=== PATIENT | male | born 1940 | race Caucasian/White ===

== ENCOUNTER → 2017-07-13 | Outpatient (CLI) | payer MEDICARE, BC ==
[2017-07-13 13:26] LABS: EKG EKG PERFORMED
[2017-07-13 13:49] LABS: CH 28.8; HCT 36.9 % (39.0-53.0); HDW 2.55; HGB 11.6 gm/dL (13.0-17.5); Hypochromasia Slight; MCH 29.2 pg (25.0-35.0); MCHC 31.3 g/dL (31.0-37.0); MCV 93.5 fL (80.0-100.0); Mean Platelet Volume 7.5; RBC 3.95 m/uL (4.30-5.90); RDW 13.5 % (11.5-15.5); WBC 10.3 k/uL (3.8-10.6)
[2017-07-13 13:57] LABS: Appearance,Urine Clear (Clear); Bilirubin,Urine Negative (Negative); Glucose,Urine (UA) Negative (Negative); Ketones,Urine Negative (Negative); Leukocyte Esterase,Urine Negative (Negative); Nitrite,Urine Negative (Negative); PH, Urine 5.5 (5.0-8.0); Protein,Urine Negative (Negative); Specific Gravity,Urine 1.009 (1.001-1.035); UA Billing (MACRO vs. MICRO) CHEM; Urobilinogen,Urine <2.0 mg/dL (<2.0)
[2017-07-13 13:58] LABS: Partial Thromboplastin Time 26.8 sec (22.0-30.0); Prothrombin Time 10.1 sec (9.0-12.0)
[2017-07-13 14:21] LABS: ALT 33 U/L (21-72); AST 25 U/L (17-59); Alkaline Phosphatase 104 U/L (38-126); Anion Gap 13 mmol/L; Blood Urea Nitrogen 39 mg/dL (9-20); Calcium 10.1 mg/dL (8.4-10.2); Carbon Dioxide 21 mmol/L (22-30); Chloride 106 mmol/L (98-107); Glucose 98 mg/dL (74-99); Non-African American GFR(MDRD) 25 (>60 ml/min/1.73 sqM); Potassium 4.7 mmol/L (3.5-5.1); Sodium 140 mmol/L (137-145); Total Bilirubin 0.7 mg/dL (0.2-1.3); Total Protein 7.3 g/dL (6.3-8.2)
== END | disposition home or self-care (01) ==
LOC: LABWHC1 13:15
PROVIDERS: ATTEND Orthopaedic Surgery
DX: Z01.810 Encounter for preprocedural cardiovascular examination (principal); Z01.812 Encounter for preprocedural laboratory examination; Z79.01 Long term (current) use of anticoagulants
CPT/HCPCS: 80053; 81003; 85027; 85610; 85730; 87070; 93005

== ENCOUNTER 2017-07-26 10:27 | Inpatient (IN) | payer MEDICARE, BC ==
[~2017-07-26 10:27] MED LIST: HYDROmorphone 0.5 MG/0.5 ML SYRINGE IVP PRN; LACTATED RINGERS 1,000 ML IV SCH; ONDANSETRON 4 MG/2 ML VIAL IVP PRN; ROPIVACAINE 246.25 MG, EPINEPHrine 0.5 MG, KETOROLAC 30 MG, cloNIDine HCL/PF 80 MCG, WA... MISCELLANE ONE; ceFAZolin 2 GM in SODIUM CHLORIDE 0.9% 100 ML IVPB ONE
[2017-07-26] MEDS ORDERED: LIDOCAINE 1% 20 ML VIAL (10MG/ML) FOR IV START INTRADERMA ONE (10:52)
[2017-07-26] MEDS ORDERED: fentaNYL (PF) 50 MCG/ML 2 ML AMP IV ONE (11:08)
[2017-07-26] MEDS ORDERED: MIDAZOLAM 2 MG/2 ML VIAL IV ONE (11:08)
--- NOTE | 2017-07-26 11:33 | P.ONQ ---
Anesthesiology Proc Note - PNB - Peripheral Nerve Block Performed Right Adductor Canal Infusion Time Out Performed: Yes Indication: Acute Post-Operative Pain, Analgesia Specifically requested for management of pain by DrAmy: Mandeep Bullard Sedation Type: Sedate with meaningful contact maintained Preparation: Sterile Prep Position: Supine Catheter Depth at Skin (cm): 6 Catheter: Indwelling Needle Types: Other (see comment) (pajunk) Needle Size: 100mm (4") Needle Gauge: 18 Technique: Ultrasound Injectate: 0.5% Ropivacaine (see comment for volume) (20cc) Blood Aspirated: No Pain Paresthesia on Injection Noted: No Resistance on Injection: Normal Events: Uneventful and Well Tolerated
[2017-07-26] MEDS ORDERED: TRANEXAMIC ACID 1,000 MG in SODIUM CHLORIDE 0.9% 100 ML IVPB PRN ×2 (11:47→11:49)
[2017-07-26] MEDS ORDERED: TRANEXAMIC ACID 1,000 MG in SODIUM CHLORIDE 0.9% 100 ML IVPB STA ×2 (11:47→11:49)
[2017-07-26] MEDS ORDERED: ACETAMINOPHEN TAB 500 MG TAB PO STA ×2 (11:47→11:49)
[2017-07-26] MEDS ORDERED: ROPIVACAINE 1,100 MG, SODIUM CHLORIDE 0.9% 330 ML MISCELLANE PRN ×2 (12:00)
[2017-07-26] MEDS ORDERED: MELOXICAM 7.5 MG TAB PO ONE (12:02)
[2017-07-26] MEDS ORDERED: HYDROcodone/APAP 5-325MG 1 EACH TAB PO PRN (12:22)
[2017-07-26] MEDS ORDERED: hydrOXYzine PAMOATE 25 MG CAP PO PRN (12:22)
[2017-07-26] MEDS ORDERED: NA PHOS,M-B/NA PHOS,DI-BA 133 ML ENEMA RECTAL PRN (12:22)
[2017-07-26] MEDS ORDERED: HYDROmorphone 0.5 MG/0.5 ML SYRINGE IVP PRN ×3 (12:22)
[2017-07-26] MEDS ORDERED: MAGNESIUM HYDROXIDE 2,400 MG/10 ML CUP PO PRN (12:22)
[2017-07-26] MEDS ORDERED: BISACODYL 10 MG SUPP RECTAL PRN (12:22)
[2017-07-26] MEDS ORDERED: DIAZEPAM 5 MG TAB PO PRN ×2 (12:22)
[2017-07-26] MEDS ORDERED: NALOXONE 0.4 MG/ML 1 ML VIAL IV PRN (12:22)
[2017-07-26] MEDS ORDERED: SODIUM CHLORIDE 0.9% 100 ML BAG ONE (12:36)
[2017-07-26] MEDS ORDERED: GLYCOPYRROLATE 0.2 MG/ML 2 ML VIAL ONE (12:36)
[2017-07-26] MEDS ORDERED: ePHEDrine SULFATE/0.9% NACL/PF 50 MG/5 ML SYRINGE IV ONE (12:36)
[2017-07-26] MEDS ORDERED: fentaNYL (PF) 50 MCG/ML 2 ML AMP ONE (12:36)
[2017-07-26] MEDS ORDERED: TRANEXAMIC ACID 1,000 MG/10 ML VIAL ONE (12:36)
[2017-07-26] MEDS ORDERED: PHENYLEPHRINE-0.9% NACL SYG 1 MG/10 ML SYRINGE ONE (12:36)
[2017-07-26] MEDS ORDERED: ceFAZolin 3,000 MG in SODIUM CHLORIDE 0.9% IRRIGATIO 3,000 ML IRRIGATION ONE (12:46)
--- NOTE | 2017-07-26 13:50 | P.OP ---
Date of Procedure: 07/26/17 Preoperative Diagnosis: Severe osteoarthritis right knee Postoperative Diagnosis: Severe osteoarthritis right knee Procedure(s) Performed: Right total knee arthroplasty Implants: [employer] Oxinium femoral component size 5, right Samuels [employer]hew Sera II right nonporous tibial baseplate size 5 [employer]hew size 9 mm Legion XLPE dished articular insert, size 5-6 [employer] Sera II resurfacing patellar component, 32 mm All components were cemented using Torrie bone cement.. The articulation is Oxinium on polyethylene. Anesthesia: local Surgeon: Mandeep Bullard Internet Marketing Coordinator #1: Mandi Dillard Estimated Blood Loss (ml): 50 Pathology: other (Bone and cartilage) Condition: stable Disposition: PACU Indications for Procedure: After failure of conservative treatment we discussed the surgical and nonsurgical treatment options at length. Patient wishes to proceed with a total knee arthroplasty. Complications specific to this procedure were discussed at length, including but not limited to infection, bleeding, stiffness , and nerve injury. Patient is aware of all these complications and informed consent was obtained Operative Findings: The operative findings are consistent with severe osteoarthritis of the right knee Description of Procedure: Patient was seen in the preoperative area consent was reviewed and operative site was marked with a skin marker. An adductor canal pain catheter was placed by anesthesia in the preoperative area. Patient was then brought to the operating room and given preoperative antibiotics intravenously. A spinal anesthetic was administered by the anesthesia department. A tourniquet was placed on the upper thigh and the lower extremity was prepped and draped in usual sterile fashion. A gram of transexamic acid was given. A universal timeout was then performed which confirmed the patient's name, surgical site, ALLERGIES, and consent. The lower extremity was then exsanguinated and tourniquet was inflated to 300 mmHg. A standard and anterior midline approach to the knee was performed. The skin and subcutaneous tissue was dissected down to the patellar tendon. A medial parapatellar arthrotomy was then performed. The knee was then extended, the patellar was everted, and the knee was again flexed. Anterior horns of both menisci were excised, and a release was performed to the posterior medial aspect of the knee. On gross visual inspection, there was complete loss of articular cartilage in the medial and patellofemoral joint spaces. There was also significant cartilage damage in the lateral compartment. There were multiple periarticular osteophytes which were then removed with a Ronguer. The femoral canal was then opened with the appropriate drill, and the intramedullary femoral cutting guide was then placed and set for 4 of valgus. The distal femoral cutting block was then pinned in place, and the distal femur was then cut. The cutting block was then removed and the cut was checked for flatness. Next, the sizing guide was then placed and set for 3 external rotation based off of the epicondylar axis and Whitesides line. After the femur was sized, the appropriate 4-in-1 cutting block was then pinned in place. The anterior condyles were cut without notching. The posterior and chamfer cuts were performed while protecting the collateral ligaments. The cutting block was then removed, and the femoral canal was plugged with autologous bone. Attention was then directed to the tibia. The remaining ACL was removed with a Ronguer, and the tibia was then gently subluxed forward with a large bent knee retractor. Any remaining menisci was excised. The posterior lateral corner was cauterized in order to cauterize the lateral geniculate artery. The extra medullary tibial cutting guide was then placed, set for the appropriate rotation , slope, and depth of resection. The proximal tibia cutting guide was then pinned in place. Proximal tibia was then cut and sized. Next trials were then placed with the appropriate-sized insert. The knee was able to fully extend and flex to 130 and was stable throughout all range of motion. The knee was then extended, patella everted. Patella was then measured, and then using an osteotomy guide, the patella was cut at the appropriate level. The patella was then measured and drilled and the patella trial was then placed. The knee was then taken through range of motion with the patella trial and the patella tracked normally. The knee was then extended patella trial was then removed and the patella was everted. Knee was then flexed and lug holes were drilled through the femoral trial and the femoral trial was then removed. The tibial was then exposed, and the tibial broach guide was then pinned in place after it was set for the appropriate rotation to allow for the most coverage without overhang. The tibia was then reamed and broached. The cut surfaces of bone were then irrigated with pulsatile lavage. The posterior structures were injected with the ropivacaine solution. The knee was also irrigated with Irrisept solution. The components were then opened, the cement was mixed, and the components were then cemented in place. The cement was allowed to harden with the knee in full extension. While the cement was hardening, the remaining soft tissues were then injected with a ropivacaine solution, which consisted of 246.25 mg of ropivacaine, 0.5 mg of epinephrine, 30 mg of Toradol, 80 g of clonidine, and 48.45 mL of sterile water, for a total of 100 mL of fluid injected. After the cemented hardened. The tourniquet was released, and hemostasis was obtained. A second gram of transexamic acid was given. The knee was again irrigated. The knee was again taken through range of motion and found to be stable throughout all range of motion of 0-130 , and the patella tracked normally. The fascia was then closed with #2 strata fix suture. The subcutaneous tissue was closed with 3-0 Vicryl and 3-0 strata fix. Dermabond tape was used for the skin and placed with the knee in flexion. The patient was placed in a sterile silver dressing. Patient was then transferred to recovery room in stable condition. The nutrition services assistant RICHARDSON Villegas was required due the complexity surgery and the need for a skilled sales operations assistant. She assisted in positioning, draping, retraction, and closure of the wound.
--- NOTE | 2017-07-26 15:01 | XR ---
EXAMINATION TYPE: XR knee limited RT DATE OF EXAM: 07/26/2017 CLINICAL HISTORY: Right knee pain and arthritis status post total knee replacement. TECHNIQUE: Portable AP and crosstable lateral views of the right knee are obtained immediately posto peratively. COMPARISON: None FINDINGS: Metallic hardware from total right knee arthroplasty is seen and appears satisfactory in a lignment and position. There is evidence of recent surgery with diffuse subcutaneous gas and soft ti ssue swelling noted. IMPRESSION: METALLIC HARDWARE FROM TOTAL RIGHT KNEE ARTHROPLASTY IS SATISFACTORY IN ALIGNMENT.
[2017-07-26] MEDS ORDERED: LACTATED RINGERS 1,000 ML IV ONE (15:48)
[2017-07-26 17:01] VITALS: BMI 34.3
[2017-07-26] MEDS: ceFAZolin 2 GM in SODIUM CHLORIDE 0.9% 100 ML IVPB SCH (18:03)
[2017-07-26] MEDS: SODIUM CHLORIDE 0.9% 1,000 ML IV SCH (18:04)
[2017-07-26] MEDS: HYDROcodone/APAP 5-325MG 1 EACH TAB PO PRN (18:11)
[2017-07-26] MEDS: ATORVASTATIN 20 MG TAB PO SCH (21:10)
[2017-07-26] MEDS: METOPROLOL TARTRATE 50 MG TAB PO SCH (21:11)
[2017-07-26] MEDS: amLODIPine 5 MG TAB PO SCH (21:11)
[2017-07-26] MEDS: hydrALAZINE HCL 25 MG TAB PO SCH (21:12)
[2017-07-26] MEDS: FAMOTIDINE 20 MG TAB PO SCH (21:12)
[2017-07-26] MEDS: SENNOSIDES-DOCUSATE SODIUM 1 EACH TAB PO SCH (22:35)
[2017-07-26] MEDS: ASPIRIN 325 MG TAB PO SCH (22:36)
--- NOTE | 2017-07-26 23:58 | CONS ---
CONSULTATION REASON FOR CONSULTATION: Medical management requested by Dr. Bullard. CONSULTATION: This is a pleasant 77-year-old patient who has undergone right total knee arthroplasty. Post procedure, very slight nausea. No chest pressure. Denies any cardiac history. Patient's and daughter are at the bedside. His chronic stable medical conditions include GERD, hypertension, hyperlipidemia, osteoarthritis, sleep apnea if he does not use CPAP machine, chronic kidney disease, stage III, iron deficiency. Denies any cardiac history. REVIEW OF SYSTEMS: CONSTITUTIONAL: None. HEENT: None. RESPIRATORY: None. CARDIOVASCULAR: None. GASTROINTESTINAL: Heartburn. GENITOURINARY: None. MUSCULOSKELETAL: Pain in different joints. DERMATOLOGICAL: None. HEMATOLOGICAL: None. LYMPHATICS: None. PSYCHIATRY: None. NEUROLOGICAL: None. PAST MEDICAL HISTORY: 1. GERD. 2. Hypertension. 3. Hyperlipidemia. 4. Osteoarthritis. 5. Obstructive sleep apnea. 6. Chronic kidney disease, stage III. 7. Iron deficiency. PAST SURGICAL HISTORY: 1. Left total hip arthroplasty. 2. EGD, dilatation. 3. Hernia repairs bilaterally. 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 . No smoking. No alcohol. FAMILY HISTORY: Cancer, type unknown. HOME MEDICATIONS: 1. Hydralazine 25 mg p.o. b.i.d. 2. Norvasc 5 mg p.o. b.i.d. 3. Zocor 40 mg at bedtime. 4. Zantac 150 mg p.o. b.i.d. 5. Lopressor 50 mg p.o. b.i.d. 6. Vitamin D3 400 units p.o. daily. 7. Aspirin 81 mg p.o. daily. ALLERGIES: NONE. PHYSICAL EXAMINATION: Temperature 96.9, pulse 79, respirations 17, blood pressure 127/72, pulse ox 96% on room air. GENERAL APPEARANCE: Well built; BMI 34.3. Lying in bed, comfortable. EYE: Pupils equal. Conjunctivae normal. HEENT: Oral cavity normal. NECK: JVD not raised. Mass not palpable. RESPIRATORY: Effort normal. Lungs are clear. CARDIOVASCULAR: First and second sounds normal. No edema. ABDOMEN: Soft, nontender. Liver and spleen not palpable. LYMPHATICS: No lymph node palpable in neck or axillae. PSYCHIATRY: Alert and oriented x3. Mood and affect normal. NEUROLOGICAL: Cranial nerves grossly intact. Power and sensation grossly intact. EXTREMITIES: Right knee in a dressing. INVESTIGATIONS: No blood work today. Blood work from 07/13/17 shows a white count of 10.3, hemoglobin 11.6, potassium 4.7, BUN 39, creatinine 2.50. ASSESSMENT: 1. Right total knee arthroplasty. 2. Gastroesophageal reflux disease. 3. Essential hypertension. 4. Hyperlipidemia. 5. Primary osteoarthritis of the joints. 6. Obstructive sleep apnea; does not use a CPAP machine. 7. Chronic kidney disease, stage III, from hypertensive nephrosclerosis. 8. Normocytic anemia, probably related to chronic kidney disease. PLAN: Home medications are resumed. Patient is on aspirin for DVT prophylaxis per Dr. Bullard. Care was discussed with the patient and family. Questions were answered. Thank you, Dr. Bullard. MMBRENNA / ELLIS: [id number] /
[2017-07-27] MEDS: ceFAZolin 2 GM in SODIUM CHLORIDE 0.9% 100 ML IVPB SCH (00:42)
[2017-07-27] MEDS: SODIUM CHLORIDE 0.9% 1,000 ML IV SCH (06:14)
[2017-07-27] MEDS: HYDROcodone/APAP 5-325MG 1 EACH TAB PO PRN ×2 (06:14→13:35)
[2017-07-27 08:05] LABS: Basophils % (A) 0 %; CH 29.6; CHCM 31.2; Eosinophils # (A) 0.1 k/uL (0-0.7); Eosinophils % (A) 2 %; HCT 31.9 % (39.0-53.0); HDW 2.43; Hypochromasia Slight; Luc # (Auto) 0.16; Luc % (Auto) 2; Lymphocytes # (A) 0.7 k/uL (1.0-4.8); Lymphocytes % (A) 7 %; MCH 28.8 pg (25.0-35.0); MCHC 30.2 g/dL (31.0-37.0); MCV 95.3 fL (80.0-100.0); Mean Platelet Volume 7.7; Monocytes # (A) 0.6 k/uL (0-1.0); Monocytes % (A) 6 %; Neutrophils # (A) 8.1 k/uL (1.3-7.7); Neutrophils % (A) 83 %; RBC 3.35 m/uL (4.30-5.90); RDW 14.3 % (11.5-15.5); WBC 9.7 k/uL (3.8-10.6); WBC (Perox) 10.08
--- NOTE | 2017-07-27 08:13 | P.PN ---
Subjective This is a 77-year-old male who is status post right total knee arthroplasty. This is postoperative day #1. Patient is seen and evaluated at bedside with Dr. Mandeep Bullard. Patient states his pain is well controlled. Patient states he has had trouble urinating and has needed to be straight cathed two times so far. Otherwise patient denies any numbness, weakness or tingling. Objective - Vital Signs Vital signs: Vital Signs Temp 96.9 F L 07/27/17 02:22 Pulse 66 07/27/17 02:22 Resp 17 07/27/17 02:22 BP 135/77 07/27/17 02:22 Pulse Ox 96 07/27/17 02:22 Intake & Output 07/26/17 07/27/17 07/27/17 18:59 06:59 18:59 Intake Total 1101 815 Output Total 50 1250 Balance 1051 -435 Weight 90.718 kg Intake: IV 1101 Intake, IV Titration 815 Amount Sodium Chloride 0.9% 1, 715 000 ml @ 65 mls/hr IV . [id number] NOA Rx#:[id number] ceFAZolin 2 gm In Sodium 100 Chloride 0.9% 100 ml @ 100 mls/hr IVPB Q8HR NOA Rx#:[id number] Output: Urine 1250 Straight 1250 Estimated Blood Loss 50 Other: # Voids 3 - Exam Vital signs are stable. Patient is in no acute distress and is alert and oriented 3. Calf is soft and nontender. Dressing is clean, dry, and intact. Neurovascular status intact. Patient has full foot and ankle motion. Assessment and Plan (1) Primary osteoarthritis of right knee Status: Acute (2) S/P total knee arthroplasty Status: Acute Plan: #1 Continue with routine postoperative care. #2 Anticoagulation with aspirin. #3 Physical therapy and CPM today. #4 Appreciate input from medicine. #5 Anticipate discharge home with home care likely tomorrow if medically stable.
[2017-07-27 08:14] LABS: HGB 9.7 gm/dL (13.0-17.5)
[2017-07-27] MEDS: METOPROLOL TARTRATE 50 MG TAB PO SCH ×2 (08:29→20:47)
[2017-07-27] MEDS: amLODIPine 5 MG TAB PO SCH ×2 (08:29→20:47)
[2017-07-27] MEDS: hydrALAZINE HCL 25 MG TAB PO SCH ×2 (08:29→20:47)
[2017-07-27] MEDS: FAMOTIDINE 20 MG TAB PO SCH ×2 (08:30→20:47)
[2017-07-27] MEDS: ASPIRIN 325 MG TAB PO SCH ×2 (08:30→20:47)
[2017-07-27] MEDS: MELOXICAM 7.5 MG TAB PO SCH (08:30)
[2017-07-27] MEDS: CHOLECALCIFEROL 400 UNIT TAB PO SCH (08:30)
--- NOTE | 2017-07-27 11:15 | P.PN ---
Progress Note - Text Progress Note Date: 07/27/17 0649 anesthesia POD 1. Patient is status post right TKR under spinal anesthesia with a right adductor canal catheter patent placed for postoperative pain relief. With ropivacaine 0.2% running at 8 mL per hour the patient's VAS anteriorly is 0, 3. Catheter site is clean dry and intact
[2017-07-27] MEDS: TAMSULOSIN 0.4 MG CAP.ER.24H PO SCH (11:46)
[2017-07-27] MEDS: ONDANSETRON 4 MG/2 ML VIAL IVP PRN ×2 (13:29→20:46)
[2017-07-27] MEDS: ATORVASTATIN 20 MG TAB PO SCH (20:47)
[2017-07-27] MEDS: SENNOSIDES-DOCUSATE SODIUM 1 EACH TAB PO SCH (20:47)
--- NOTE | 2017-07-27 21:52 | P.PN ---
Progress Note - Text Progress Note Date: 07/27/17 DATE OF SERVICE: 07/27/2017 PRESENTING COMPLAINT: Schedule surgery, right total knee arthroplasty HISTORY OF PRESENT ILLNESS: 77-year-old male status post right total knee arthroplasty. INTERVAL HISTORY: 07/27/2017: Patient lying in bed appears much more comfortable than previously. Patient had significant pain last night much better today. Tolerating his diet, encouraged to eat light foods, agreeable to work with physical therapy. Passing some gas REVIEW OF SYSTEMS: Done for constitutional ,cardiovascular, GI, pulmonary with relevant findings as above. CURRENT MEDICATIONS [place], aspirin, Lipitor, Valium, Apresoline, the stroke, Lopid, Flomax. PHYSICAL EXAM VITAL SIGNS: Temperature 97.5 pulse 62, respiratory rate 16, blood pressure 135/77, oxygen saturation 95% room air GENERAL APPEARANCE: Average build. Lying in bed, not in distress. EYES: Pupils equal. Conjunctiva normal. NECK: JVD not raised. Mass not palpable. RESPIRATORY: Respiratory effort normal. Lungs clear to auscultation. CARDIOVASCULAR: First and second sounds normal. No edema. ABDOMEN: Soft. Liver and spleen not palpable. No tenderness. No mass palpable. PSYCHIATRY: Alert and oriented x3. Mood and affect normal. NEUROLOGICAL: Cranial nerves grossly intact. No facial asymmetry. Power and sensation grossly intact INVESTIGATIONS: Hemoglobin 9.7 ASSESSMENT: -Right total knee arthroplasty. -Acute blood loss anemia as expected from surgery -Gastroesophageal reflux disease. -Essential hypertension. -Hyperlipidemia. -Primary ulcer arthritis of the joints. -Obstructive sleep apnea. Does not use a CPAP machine. -Chronic kidney disease stage III from hypertensive nephrosclerosis. -Normocytic anemia, probably related to chronic kidney disease. PLAN: Continue aspirin for DVT prophylaxis, and pain management regimen per orthopedics. Plan of care discussed at the bedside with family and patient. They are in Agreement. We will follow closely. PLEATING MACHINE OPERATOR statement: Patient was seen and examined by nurse practitioner Safia Botello and all elements of the case discussed with attending Dr. Higuera
--- NOTE | 2017-07-27 22:50 | PN ---
PROGRESS NOTE DATE OF SERVICE: 07/27/2017 ATTENDING NOTE: This patient was seen and examined by me. I discussed with nurse practitioner, Ms. Botello. Status post right total knee arthroplasty, doing well. Pain is better controlled. No nausea, vomiting, tolerating a diet. Did work with Physical Therapy. EXAM: LUNGS: Clear. CARDIOVASCULAR: First and second sounds normal. Hemoglobin 9.7. ASSESSMENT: 1. Right total knee arthroplasty. 2. Acute blood loss anemia expected from surgery. Care was discussed with the patient. Continue with treatment plan. MMODL / IJN: [id number] /
[2017-07-27 23:03] VITALS: RESP 16
[2017-07-28 07:59] VITALS: BP 175/92; PULSE 78; TEMP 98
[2017-07-28] MEDS: hydrALAZINE HCL 25 MG TAB PO SCH (08:14)
[2017-07-28] MEDS: TAMSULOSIN 0.4 MG CAP.ER.24H PO SCH (08:14)
[2017-07-28] MEDS: FAMOTIDINE 20 MG TAB PO SCH (08:14)
[2017-07-28] MEDS: CHOLECALCIFEROL 400 UNIT TAB PO SCH (08:14)
[2017-07-28] MEDS: MELOXICAM 7.5 MG TAB PO SCH (08:14)
[2017-07-28] MEDS: ASPIRIN 325 MG TAB PO SCH (08:14)
[2017-07-28] MEDS: amLODIPine 5 MG TAB PO SCH (08:14)
[2017-07-28] MEDS: METOPROLOL TARTRATE 50 MG TAB PO SCH (08:15)
[2017-07-28] MEDS ORDERED: traMADol 50 MG TAB PO PRN ×2 (08:58)
--- NOTE | 2017-07-28 08:58 | P.DS ---
Providers Date of admission: 07/26/17 10:27 Expected date of discharge: 07/28/17 Attending physician: Mandeep Bullard Consults: 07/26/17 12:22 Consult Physician Routine Consulting Provider: Rickey Higuera Consult Reason/Comments: medical management Do you want consulting provider notified?: Yes Primary care physician: Stated None - Discharge Diagnosis(es) (1) Primary osteoarthritis of right knee Current Visit: Yes Status: Acute (2) S/P total knee arthroplasty Current Visit: Yes Status: Acute Hospital Course: This is a 77-year-old male with known history of degenerative arthritis of the right knee. The patient presents for evaluation. After discussion and consideration patient elects to proceed with total knee arthroplasty. The patient is seen preoperatively by Dr. Bullard and cleared for surgery. Patient is [facility] to [facility] on 07/26/2017 for total knee arthroplasty. The procedures performed without complication or sequelae. The patient is doing well postoperatively. Labs and vital signs are stable on day of discharge. On day of discharge patient's knee dressing is intact. There is minimal erythema. There is no drainage noted at this time. There is minimal soft tissue swelling to the knee. Patient has full foot and ankle motion without difficulty or pain. Neurovascular status to the right lower extremity is intact. Patient is discharged home in good condition. Please see med rec for accurate list of home medications. Plan - Discharge Summary New Discharge Prescriptions: New Aspirin 325 mg PO BID #60 tab Sennosides-Docusate Sodium [Senokot-S] 1 tab PO BID #60 tablet traMADol HCl [Ultram] 50 mg PO Q6H PRN #90 tab PRN Reason: Pain No Action amLODIPine [Norvasc] 5 mg PO BID hydrALAZINE HCL 25 mg PO BID Simvastatin [Zocor] 40 mg PO HS Ranitidine HCl [Zantac] 150 mg PO BID Cholecalciferol [Vitamin D3] 400 units PO DAILY Aspirin EC [Ecotrin Low Dose] 81 mg PO DAILY Metoprolol Tartrate [Lopressor] 50 mg PO BID Discharge Medication List Aspirin EC [Ecotrin Low Dose] 81 mg PO DAILY 06/24/16 [History] Cholecalciferol [Vitamin D3] 400 units PO DAILY 06/24/16 [History] Ranitidine HCl [Zantac] 150 mg PO BID 06/24/16 [History] Simvastatin [Zocor] 40 mg PO HS 06/24/16 [History] amLODIPine [Norvasc] 5 mg PO BID 06/24/16 [History] hydrALAZINE HCL 25 mg PO BID 06/24/16 [History] Metoprolol Tartrate [Lopressor] 50 mg PO BID 07/26/17 [History] Aspirin 325 mg PO BID #60 tab 07/27/17 [Rx] Sennosides-Docusate Sodium [Senokot-S] 1 tab PO BID #60 tablet 07/27/17 [Rx] traMADol HCl [Ultram] 50 mg PO Q6H PRN #90 tab 07/28/17 [Rx] Follow up Appointment(s)/Referral(s): Mandeep Bullard DO [Doctor of Osteopathic Medicine] - 2 Weeks Ambulatory/Diagnostic Orders: Continuous Passive Motion (CPM) Machine [DME.AMB1] Time Frame: 2 Weeks, Location : Determined By Patient Activity/Diet/Wound Care/Special Instructions: Weightbearing as tolerated with a walker CPM 5-6h daily Leave dressing intact. May be removed by home care nurse in 7 days. May shower with dressing on. [facility] with questions or concerns [phone] CPM through [facility], please call when arrive home. [phone]. [facility] [phone] Discharge Disposition: HOME WITH HOME HEALTH SERVICES
--- NOTE | 2017-07-28 17:22 | PN ---
PROGRESS NOTE DATE OF SERVICE: 07/28/2017 INTERVAL HISTORY: This 77-year-old gentleman who was admitted for right total knee arthroplasty improving significantly. No chest pain. No palpitations. No fever. EXAM: Alert and oriented times three. Pulse 78, blood pressure 170/92, respirations 16, temperature 98 degrees, pulse ox 97% on room air. HEENT: Conjunctivae normal. Neck: No jugular venous distention. Cardiovascular: S1, S2 muffled. Respiratory: Breath sounds diminished in the bases. No rhonchi, no crackles. Abdomen is soft, nontender. Legs status post knee arthroplasty. LABS: Hemoglobin 9.7. ASSESSMENT: 1. Status post right total knee arthroplasty. 2. Acute blood loss anemia as expected from surgery. 3. History of gastroesophageal reflux disease. 4. Hypertension. 5. Hyperlipidemia. 6. History of degenerative joint disease. RECOMMENDATIONS AND DISCUSSION: Recommend to continue current medications, management. Symptomatic treatment. Otherwise monitor. Recommend to monitor blood pressure closely. Continue to monitor and recommend close follow up with the primary physician in the outpatient setting. Further recommendations to follow. MMODL / IJN: [id number] /
== END 2017-07-28 12:20 | disposition home health service (06) | DRG 470 ==
LOC: 2ORMAIN 10:27 → 3SUR 14:22
PROVIDERS: ADMIT Orthopaedic Surgery; ATTEND Orthopaedic Surgery
PROC: 0SRC069 Replacement of Right Knee Joint with Oxidized Zirconium on Polyethylene Synthetic Substitute, Cemented, Open Approach (ICD-10-PCS; principal; 2017-07-26 12:00)
DX: M17.11 Unilateral primary osteoarthritis, right knee (principal); D62 Acute posthemorrhagic anemia; D63.1 Anemia in chronic kidney disease; N18.3 Chronic kidney disease, stage 3 (moderate); E78.5 Hyperlipidemia, unspecified; G47.33 Obstructive sleep apnea (adult) (pediatric); I12.9 Hypertensive chronic kidney disease with stage 1 through stage 4 chronic kidney disease, or unspecified chronic kidney disease; K21.9 Gastro-esophageal reflux disease without esophagitis; Z79.82 Long term (current) use of aspirin; Z79.899 Other long term (current) drug therapy; Z96.642 Presence of left artificial hip joint
CPT/HCPCS: 85025; 88300

== ENCOUNTER 2019-02-03 08:00 | Emergency (ER) | payer MEDICARE, BC ==
--- NOTE | 2019-02-03 08:58 | ED ---
Back Pain HPI - General Chief Complaint: Back Pain/Injury Stated Complaint: lower right back pain Time Seen by Provider: 02/03/19 08:08 Source: patient, family, RN notes reviewed, old records reviewed Limitations: no limitations - History of Present Illness Initial Comments: This is a 78-year-old male presents with complaints of right low back pain which she states started 6 days ago. He is not recall any injury coughing sneezing or positional change in his see the pain. He states that he was at [facility] 2 days after this started he states he had a CAT scan done which showed no evidence of any pathology. He states at rest the pain is absent but when he tries to move it shoots up to a sharp 10/10 pain. He points to his right SI joint area he states it does not radiate he has had no other symptoms with it no loss of function no numbness or tingling. He states he does have trouble urinating but nothing out of the ordinary. No different smell or appearance of his urine MD Complaint: back pain - Related Data Home Medications Medication Instructions Recorded Confirmed Cholecalciferol [Vitamin D3] 400 units PO DAILY 06/24/16 02/03/19 Simvastatin [Zocor] 40 mg PO HS 06/24/16 02/03/19 hydrALAZINE HCL 25 mg PO BID 06/24/16 02/03/19 Aspirin EC [Ecotrin Low Dose] 81 mg PO DAILY 09/25/17 02/03/19 Metoprolol Tartrate [Lopressor] 25 mg PO BID 02/03/19 02/03/19 Ranitidine HCl [Zantac] 150 mg PO DAILY 02/03/19 02/03/19 amLODIPine [Norvasc] 5 mg PO DAILY 02/03/19 02/03/19 traMADol HCL [Ultram] 1 - 2 tab PO Q6H 02/03/19 02/03/19 Previous Rx's Medication Instructions Recorded predniSONE 20 mg PO BID #10 tab 02/03/19 Allergies Allergy/AdvReac Type Severity Reaction Status Date / Time hydromorphone [From Dilaudid] AdvReac Confusion Verified 02/03/19 08:25 Review of Systems ROS Statement: Those systems with pertinent positive or pertinent negative responses have been documented in the HPI. ROS Other: All systems not noted in ROS Statement are negative. Past Medical History Past Medical History: GERD/Reflux, Hyperlipidemia, Hypertension, Osteoarthritis (OA), Renal Disease, Sleep Apnea/CPAP/BIPAP Additional Past Medical History / Comment(s): CKD-STAGE 3-watching labwork. IRON DEFICIENCY ANEMIA (HAS HAD PAST IRON INFUSIONS). DOES NOT USE CPAP. History of Any Multi-Drug Resistant Organisms: None Reported Past Surgical History: Hernia Repair Additional Past Surgical History / Comment(s): 07/02/16 TOTAL L HIP ARTHROPLASTY-ANTERIOR APPROACH. OTHER SURGICAL HX: EGD DILATATION X 10 OR MORE, COLONOSCOPY,HERNIA REPAIRS BILATERALLY AND TWICE ON RIGHT SIDE, total right knee arthroplasty Past Anesthesia/Blood Transfusion Reactions: Blood Transfusion Reaction Additional Past Anesthesia/Blood Transfusion Reaction / Comment(s): NO REACTION TO BLOOD, patient denies transfustion reaction, "I've had blood in the past without any problems". Past Psychological History: No Psychological Hx Reported Smoking Status: Never smoker Past Alcohol Use History: None Reported Past Drug Use History: None Reported - Past Family History Sister(s) Family Medical History: Cancer Brother(s) Family Medical History: Cancer Father Family Medical History: Osteoarthritis (OA) Mother Family Medical History: Hypertension General Exam - General Exam Comments Initial Comments: This is a well-developed well-nourished awake alert oriented 3 male Limitations: no limitations General appearance: alert, in no apparent distress Head exam: Present: atraumatic, normocephalic, normal inspection Eye exam: Present: normal appearance, PERRL, EOMI. Absent: scleral icterus, conjunctival injection, periorbital swelling ENT exam: Present: normal exam, mucous membranes moist Neck exam: Present: normal inspection. Absent: tenderness, meningismus, lymphadenopathy Respiratory exam: Present: normal lung sounds bilaterally. Absent: respiratory distress, wheezes, rales, rhonchi, stridor Cardiovascular Exam: Present: regular rate, normal rhythm, normal heart sounds. Absent: systolic murmur, diastolic murmur, rubs, gallop, clicks GI/Abdominal exam: Present: soft, normal bowel sounds. Absent: distended, tenderness, guarding, rebound, rigid Extremities exam: Present: normal inspection, full ROM, normal capillary refill. Absent: tenderness, pedal edema, joint swelling, calf tenderness Back exam: Present: normal inspection, full ROM, tenderness (Is palpation of the right SI joint no step-off no crepitation no bruising) Neurological exam: Present: alert, oriented X3, CN II-XII intact Psychiatric exam: Present: normal affect, normal mood Skin exam: Present: warm, dry, intact, normal color. Absent: rash Course Vital Signs 02/03/19 02/03/19 08:02 09:05 Temperature 98.3 F 98 F Pulse Rate 77 69 Respiratory 16 17 Rate Blood Pressure 162/89 152/98 O2 Sat by Pulse 95 95 Oximetry Medical Decision Making - Medical Decision Making I did discuss the findings with the patient family members were present I did also review the CAT scan report from [facility]. It did show evidence of degenerative l changes in the lumbar region. I did a long discussion with him and his family regarding findings the patient presentation is consistent with sacroiliitis. He'll be placed on a short course of oral steroids and Tylenol for pain. He will be referred to Dr. Peterson. He also follow-up with his own doctor. - Radiology Data Radiology results: report reviewed (I did review the imaging and report evidence of degenerative changes of lumbar spine also right hip degenerative changes), image reviewed Disposition Clinical Impression: Mechanical back pain, Sacroiliitis Disposition: HOME SELF-CARE Condition: Good Instructions (If sedation given, give patient instructions): Acute Low Back Pain (ED) Additional Instructions: Tylenol for pain Prescriptions: predniSONE 20 mg PO BID #10 tab Is patient prescribed a controlled substance at d/c from ED?: No Referrals: None,Stated [Primary Care Provider] - 1-2 days Rebekah Peterson DO [Doctor of Osteopathic Medicine] - 1-2 days
--- NOTE | 2019-02-03 09:19 | XR ---
EXAMINATION TYPE: XR lumbosacral spine min 4V DATE OF EXAM: 02/03/2019 COMPARISON: NONE HISTORY: 78-year-old male with pain for one week TECHNIQUE: 5 views FINDINGS: Osteopenia. 5 lumbar type vertebral bodies. Hypertrophic facet arthropathy mid to lower lumbar spine. Somewhat short appearance to the pedicles in the lower lumbar spine. Baastrup's disease. Moderate to advanced endplate spondylosis visualized lower thoracic and upper lumbar spine. Mild disc interspace narrowing throughout the lumbar spine. Grade 1 anterolisthesis at L4-L5. Grade 1 retrolisthesis at L 1-L2 and L2-L3. Vertebral body heights are preserved. Accentuated lumbar lordosis. IMPRESSION: 1. 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 Accentuated lumbar lordosis. 2. No vertebral compression collapse. 3. Grade 1 retrolisthesis at L1-L2 and L2-L3 and grade 1 anterolisthesis L4-L5. 4. Bulky endplate spondylosis visualized lower thoracic spine and in the upper lumbar spine. At least mild degenerative disc disease throughout the remainder of the lumbar spine.
[2019-02-03] MEDS ORDERED: predniSONE 50 MG TAB PO STA (10:10)
[2019-02-03 10:13] VITALS: BP 158/95
[2019-02-03 10:14] VITALS: PULSE 67; RESP 16; TEMP 98.1
== END 2019-02-03 10:25 | disposition home or self-care (01) ==
LOC: EC 08:00
DX: M46.1 Sacroiliitis, not elsewhere classified (principal); M47.816 Spondylosis without myelopathy or radiculopathy, lumbar region; M16.11 Unilateral primary osteoarthritis, right hip; E78.5 Hyperlipidemia, unspecified; K21.9 Gastro-esophageal reflux disease without esophagitis; I12.9 Hypertensive chronic kidney disease with stage 1 through stage 4 chronic kidney disease, or unspecified chronic kidney disease; N18.3 Chronic kidney disease, stage 3 (moderate); Z88.5 Allergy status to narcotic agent; Z79.82 Long term (current) use of aspirin; Z79.891 Long term (current) use of opiate analgesic; Z79.899 Other long term (current) drug therapy; Z86.2 Personal history of diseases of the blood and blood-forming organs and certain disorders involving the immune mechanism; Z96.642 Presence of left artificial hip joint; Z96.651 Presence of right artificial knee joint; Z82.61 Family history of arthritis
CPT/HCPCS: 72110; 99284; J7512

== ENCOUNTER 2019-07-06 12:04 | Day surgery (SDC) | payer MEDICARE, BC ==
[~2019-07-06 12:04] MED LIST changes: -HYDROmorphone 0.5 MG/0.5 ML SYRINGE IVP PRN; +LIDOCAINE 1% 20 ML VIAL (10MG/ML) FOR IV START INTRADERMA PRN; -ONDANSETRON 4 MG/2 ML VIAL IVP PRN; -ROPIVACAINE 246.25 MG, EPINEPHrine 0.5 MG, KETOROLAC 30 MG, cloNIDine HCL/PF 80 MCG, WA... MISCELLANE ONE; -ceFAZolin 2 GM in SODIUM CHLORIDE 0.9% 100 ML IVPB ONE
[2019-07-06 12:24] VITALS: TEMP 98.2
[2019-07-06] MEDS ORDERED: PROPOFOL 10 MG/ML 20 ML VIAL IV ONE (13:07)
[2019-07-06] MEDS ORDERED: LIDOCAINE 1% INJ 10MG/ML (20 ML MDV) ONE (13:07)
--- NOTE | 2019-07-06 13:29 | P.PCN ---
Date of Procedure: 07/06/19 Procedure(s) Performed: Brief history: Patient is a pleasant 79-year-old white male, scheduled for an elective upper endoscopy as well as colonoscopy as a part of evaluation of I deficiency anemia. He denies any GI symptoms. Procedure performed: Esophagogastroduodenoscopy with biopsy Colonoscopy Preoperative diagnosis: Iron deficiency anemia [place] [facility] [place] After informed consent was obtained from the patient was brought into the endoscopy unit and IV sedation was administered by anesthesia under continuous monitoring. Initially upper endoscopy was done. The Olympus GF 160 video endoscope was inserted inserted into the mouth and esophagus intubated without any difficulty and was gradually advanced into the stomach and duodenum and carefully examined. The bulb and second part of the duodenum appeared normal. There was a 5 limited duodenal polyp that was removed by biopsy. The scope was then withdrawn into the stomach adequately insufflated with air and upon careful examination the antrum and body, cardia and fundus appeared normal. The scope was then withdrawn into the esophagus. Moderate to large size hiatal hernia noted. The GE junction was located at 35 cm to the incisors. There was long segment of Escoto's esophagus extending from 26-35 cm from the incisors and multiple biopsies were done to rule out dysplasia. Rest of the esophagus appeared normal. Patient tolerated the procedure well. At this time the patient continued to remain sedation. Initial digital rectal examination was normal. Olympus CF 160 video colonoscope was then inserted into the rectum and gradually advanced to the cecum without any difficulty. Careful examination was performed as the scope was gradually being withdrawn. The prep was excellent. The cecum, ascending colon, transverse colon, descending colon, sigmoid colon and rectum appeared normal. On a diffuse diverticulosis seen. Retroflexion was performed in the rectum and no lesions were noted. Patient tolerated the procedure well. Impression: 1. Upper endoscopy revealed moderate to large size hiatal hernia , long segment Escoto's esophagus and duodenal polyp 2. Colonoscopy revealed diffuse scattered diverticulosis but no evidence of colorectal neoplasia Recommendations: Findings of this examination were discussed with the patient as well as his family. He was advised to follow with the biopsy results. He will be started on Prilosec 20 mg daily for reflux symptoms. If the biopsy confirms the presence of Escoto's esophagus he can have a repeat upper endoscopy in 2 years. He will continue with iron supplements daily. Monitor CBC on a monthly basis
[2019-07-06 13:42] VITALS: PULSE 61
[2019-07-06 13:53] VITALS: BP 140/87; RESP 20
== END 2019-07-06 14:12 | disposition home or self-care (01) ==
LOC: ORWHC2ENDO 12:04
PROVIDERS: ATTEND Internal Medicine Gastroenterology
DX: D50.9 Iron deficiency anemia, unspecified (principal); K44.9 Diaphragmatic hernia without obstruction or gangrene; K22.70 Barrett's esophagus without dysplasia; K57.30 Diverticulosis of large intestine without perforation or abscess without bleeding; K29.80 Duodenitis without bleeding; K31.7 Polyp of stomach and duodenum; Z79.899 Other long term (current) drug therapy; Z88.5 Allergy status to narcotic agent
CPT/HCPCS: 88305; 45378; 43239; J2001; J2704

== ENCOUNTER 2022-10-08 09:18 | Day surgery (SDC) | payer MEDICARE, BC ==
[~2022-10-08 09:18] MED LIST changes: +LIDOCAINE 1% (10MG/ML) FOR IV START INTRADERMA PRN; -LIDOCAINE 1% 20 ML VIAL (10MG/ML) FOR IV START INTRADERMA PRN
[2022-10-08 09:57] VITALS: TEMP 97
[2022-10-08] MEDS ORDERED: LIDOCAINE 2% INJ 20 MG/ML (2 ML VIAL) ONE (10:25)
[2022-10-08] MEDS ORDERED: PROPOFOL 10 MG/ML 20 ML VIAL IV ONE (10:25)
--- NOTE | 2022-10-08 10:39 | P.PCN ---
Date of Procedure: 10/08/22 Procedure(s) Performed: BRIEF HISTORY: Patient is a 82-year-old, pleasant, white male scheduled for an upper endoscopy as a part of evaluation of GERD and Escoto's esophagus. Last EGD was 3 years ago.. PROCEDURE PERFORMED: Esophagogastroduodenoscopy With biopsy PREOPERATIVE DIAGNOSIS: Long-standing history of GERD and Escoto's esophagus. IV sedation per anesthesia. PROCEDURE: After informed consent was obtained, the patient was brought into the endoscopy unit. IV sedation was administered by Anesthesia under continuous monitoring. Initially the Olympus GIF-140 video endoscope was inserted into the mouth. Esophagus intubated without any difficulty. It was gradually advanced into the stomach and duodenum and carefully examined. The bulb and the second part of the duodenum appeared normal. The scope at this time was withdrawn to the stomach, adequately insufflated with air, and upon careful examination, mucosa of the antrum, body, cardia and the fundus appeared normal. The scope was then withdrawn into the esophagus. moderate size hiatal hernia noted. The GE junction was located at 35 cm from the incisors. long segment of Escoto's esophagus extending from 30-35-25 cm from incisors and multiple biopsies were done from the distal segment and the proximal segment of Escoto's esophagus to rule out dysplasia. The rest of theesophagus appeared normal. There were no erosions or ulcerations seen and the patient tolerated the procedure well. IMPRESSION: 1. Long segment Escoto's esophagus extending from 35-35 cm from the incisors status post multiple biopsies to rule out dysplasia 2. Moderate size hiatal hernia RECOMMENDATIONS: The findings of this examination were discussed with the patient as well as his family. He was advised to follow with the biopsy results. If the biopsy does not show any evidence of dysplasia he can have a repeat upper endoscopy in 3 years. Continue with omeprazole 20 mg daily and follow antireflux measures.
[2022-10-08 11:18] VITALS: BP 133/76; PULSE 61; RESP 16
== END 2022-10-08 11:21 | disposition home or self-care (01) ==
LOC: ORWHC2ENDO 09:18
PROVIDERS: ATTEND Internal Medicine Gastroenterology
DX: K22.70 Barrett's esophagus without dysplasia (principal); K21.9 Gastro-esophageal reflux disease without esophagitis; K44.9 Diaphragmatic hernia without obstruction or gangrene; I10 Essential (primary) hypertension; E78.5 Hyperlipidemia, unspecified; G47.33 Obstructive sleep apnea (adult) (pediatric); N40.0 Benign prostatic hyperplasia without lower urinary tract symptoms; Z88.8 Allergy status to other drugs, medicaments and biological substances; Z79.899 Other long term (current) drug therapy
CPT/HCPCS: 43239; J2704; J2001; 88305